=== PATIENT | female | born 1970 | race Caucasian/White ===

== ENCOUNTER 2024-03-09 19:47 | Emergency (ER) | payer BC, SELFPAY ==
[2024-03-09 20:03] VITALS: BP 160/110
--- NOTE | 2024-03-09 20:36 | ED.GENMED ---
History of Present Illness
General
Chief Complaint: Bowel Problem
Source: patient
Exam Limitations: none
Time Seen by Provider: 03/09/24 20:17
History of Present Illness
History of Present Illness:
53-year-old female with no clinically significant abnormality presents stating 2 nights ago she felt constipated, she cannot remember her last bowel movement. Her gave her a suppository and a fleets enema and she has had several soft good
bowel movements since. She has however had abdominal pain and feels bloated and has rectal pain. She is tearful.
She states at this time abdominal pain is not bad but she was doubled over in pain earlier. She feels pressure and pain in the rectal area 'like I have to push it out'
Denies fever or chills. Denies chest pain or trouble breathing. Denies UTI symptoms.
Past History
Past History
ED Past Medical History: None and Psychiatric (anxiety)
ED Past Surgical History: None
Social History
Tobacco: Former smoker
Alcohol: Daily
Personal:
Living: with family
Family History
Family History: Adopted
Review of Systems
Review of Systems
Allergies reviewed?: Yes
All Other Systems: ROS reviewed and negative except as documented in HPI and ROS
Constitutional: Denies fever
Respiratory: Denies trouble breathing
Cardiac: Denies chest pain
ABD/GI: Reports abdominal pain and constipated; Denies nausea, vomiting, diarrhea, bloody stools or black stools
: Denies dysuria, frequency, flank pain, difficulty voiding or urgency
Musculoskeletal: Reports no symptoms
Skin: Reports no symptoms
Neurological: Reports no symptoms
Phy Exam
Physical Exam
Physical Exam:
GENERAL: No acute distress. A&Ox3.
CONSTITUTIONAL: Afebrile.
EYES: clear, conjunctivae normal
ENMT: moist mucus membranes, Pharynx nl
RESPIRATORY: Regular respirations, nonlabored, lungs clear.
CARDIOVASCULAR: Regular rate and rhythm, no murmurs, no rubs.
GI: Soft, nontender, normal BS
Rectal: No significant tenderness, no palpable masses, no stool in rectal vault, no hemorrhoids
MUSCULOSKELETAL: Moves with ease. Well perfused.
SKIN: Warm, dry, pink
PSYCH: Anxious, intermittently tearful, seemingly out of proportion to her symptoms and exam, mood and affect. Well kept.
NEUROLOGIC: Awake, alert and oriented. No focal neurological deficits
Course
Orders/Labs/Results
Orders:
Orders
03/09/24 20:30
0.9% Sodium Chloride 1000 ml [Nss] 1,000 ml IV BOLUS
03/09/24 20:39
Complete Blood Count/With Diff Urgent
Comprehensive Metabolic Panel Urgent
Lipase Urgent
03/09/24 21:27
Urinalysis Reflex To Culture Urgent
Date Specimen was Collected: 03/09/24
Time Specimen was Collected: 20:55
Urine Microscopic Reflex Cult Urgent
Urine Culture Urgent
MARIAELENA Source: U
Specimen Description:
Date Specimen was Collected: 03/09/24
Time Specimen was Collected: 20:55
Abnormal Lab Results
03/09/24 03/09/24
20:39 21:27
MCH 32.5 H pg
(27.0-31.0)
Absolute Monos (auto) 0.7 H 10^3/uL
(0.1-0.6)
Glucose 100 H mg/dl
(70-99)
AST 116 H U/L
(14-36)
ALT 75 H U/L
(0-35)
Leukocyte Esterase Rfl 2+ A
(Negative)
Urine WBC (Reflex) 30-40 A /HPF
(0-5)
03/09/24 20:39
03/09/24 20:39
Vital Signs
Initial and Last Documented VS:
Initial Vital Signs
Temp Pulse Resp BP Pulse Ox
98.1 F 116 26 160/110 98
03/09/24 20:03 03/09/24 20:03 03/09/24 20:03 03/09/24 20:03 03/09/24 20:03
Last Documented Vital Signs
Temp Pulse Resp BP Pulse Ox
98.1 F 88 16 138/96 98
03/09/24 20:03 03/09/24 22:10 03/09/24 22:10 03/09/24 22:10 03/09/24 22:10
MDM/Problems Addressed
Differential Diagnosis Includes:
Constipation, proctalgia, bowel obstruction,
MDM/Problems Addressed:
53-year-old female with no clinically significant abnormality presents stating 2 nights ago she felt constipated, she cannot remember her last bowel movement. Her gave her a suppository and a fleets enema and she has had several soft good
bowel movements since. She has however had abdominal pain and feels bloated and has rectal pain. She is tearful.
She states at this time abdominal pain is not bad but she was doubled over in pain earlier. She feels pressure and pain in the rectal area 'like I have to push it out'
Denies fever or chills. Denies chest pain or trouble breathing. Denies UTI symptoms.
Afebrile. Anxious, tearful
9:30 p.m.
CBC normal
CMP unremarkable
Lipase normal
U/A few WBC's no UTI symptoms will await culture results. Pt informed of this.
10:00 P.m.
Pt remains tearful, tremulous, face flush, wants to leave, 'I just want to go home,' 'I want to call my (destinee), but he's out of town.'
Does not want to get CT scan.Daughter at bedside could not talk her into getting the scan
Her belly is soft, normal BS, non distended, no stool in rectal vault, no hemorrhoids, rectal exam not significantly painful, no palpable masses, in no distress
Pt is stable and can be discharged. Return instructions reviewed.
DC'd to care of daughter, ambulated out with normal gait.
*Critical Care Note
Total Time (30-74mins, 75-104mins- exclusive of procedures): Not Applicable
ED Attending Note
-
Portions of this chart may have been created with voice recognition software.� Occasional wrong word or��sound alike� substitutions may have occurred due to the inherent limitations of voice recognition software.
Discharge Plan
Departure
Patient Disposition: Home (Routine Discharge)
Date of Disposition: 03/09/24
Time of Disposition: 22:05
Patient with high blood pressure during this ER visit?: Yes
Condition: Fair
Discharge Problem:
Proctalgia, Abdominal pain
Instructions: Constipation, Adult (DC), Abdominal Pain
Referrals:
Rd Vasquez, DO [Family Provider] - As needed
Activity Restrictions/Additional Instructions:
As we discussed, your blood work is normal
Your urine has a few white blood cells that may indicate a UTI or urinary tract infection, when your final culture comes back in 2 to 3 days, if you need treatment with an antibiotic we will contact you.
See your doctor in 3 to 5 days if you are not improved by then.
Return here immediately for worsening abdominal pain, fever, vomiting or feeling sicker in any way.
Interventions
Interventions:
*Risk Screen - Suicide Last Done: 03/09/24 20:03
*General Assessment Last Done: 03/09/24 20:41
*Neglect/Abuse Screening Last Done: 03/09/24 20:03
*ED COVID-19 Vaccine History Last Done: 03/09/24 20:41
*Nursing Disposition Last Done: 03/09/24 22:15
QF-Eecikl-Jwoctupssy Assessment Last Done: 03/09/24 20:41
Discharge Date and Time
Discharge Date/Time: 03/09/24 22:16
Print Language: YORUBA
[2024-03-09] MEDS: NSS 1000 IV (20:39)
[2024-03-09 20:41] VITALS: BMI 29.5
[2024-03-09 20:46] LABS: % Eosinophils 0.4 % (0-6); % Immature Granulocytes 0.4 % (0-0.5); % Lymphocytes 33.8 % (20.5-51.1); % Monocytes 8.6 % (1.7-9.3); % Neutrophils 55.8 % (42.2-75.2); Absolute Basophils 0.1 10^3/uL (0-0.2); Absolute Lymphocytes 2.7 10^3/uL (1.2-3.4); Absolute Monocytes 0.7 10^3/uL (0.1-0.6); Absolute Neutrophils 4.5 10^3/uL (1.4-6.5); Hemoglobin 14.7 g/dL (12.0-16.0); Mean Corp Hgb Conc. 35.9 g/dL (33.0-37.0); Mean Corpuscular Hgb 32.5 pg (27.0-31.0); Mean Corpuscular Volume 90.7 fL (81.0-99.0); Mean Platelet Volume 9.5 fL (7.4-10.4); Nucleated Red Blood Cells % 0 %; Platelet Count 305 10^3/uL (130-400); Red Blood Cell Count 4.52 10^6/uL (4.20-5.40); White Blood Cell Count 8.1 10^3/uL (4.8-10.8)
[2024-03-09 21:02] LABS: ALT (SGPT) 75 U/L (0-35); AST (SGOT) 116 U/L (14-36); Albumin 4.7 g/dl (3.5-5.0); Alkaline Phosphatase 94 U/L (38-126); Blood Urea Nitrogen 7 mg/dl (7-17); Calcium 9.8 mg/dl (8.4-10.2); Carbon Dioxide 23 mmol/L (22-30); Chloride 103 mmol/L (98-107); Estimated Creatinine Clearance 99 ml/min; Glucose 100 mg/dl (70-99); Potassium 4.3 mmol/L (3.5-5.1); Sodium 145 mmol/L (135-145); Total Bilirubin 0.9 mg/dl (0.2-1.3); Total Protein 7.8 g/dl (6.3-8.2); eGFR > 60.00
[2024-03-09 21:21] LABS: Lipase 205 U/L (23-300)
[2024-03-09 21:33] LABS: Urine Albumin Negative (Neg - Trace); Urine Bilirubin Negative (Negative); Urine Character Clear (Clear); Urine Color Yellow; Urine Glucose Negative (Negative); Urine Ketone Negative (Negative); Urine Leukocyte 2+ (Negative); Urine Nitrite Negative (Negative); Urine Occult Blood Negative (Negative); Urine Urobilinogen Negative (Neg - 1+)
[2024-03-09 21:39] LABS: Urine Squamous Cell >30 /LPF (Few); Urine White Cell 30-40 /HPF (0-5)
[2024-03-09 21:40] LABS: Urine Red Blood Cell 0-2 /HPF (0-2)
[2024-03-09 22:10] VITALS: BP 138/96
== END 2024-03-09 22:16 | disposition home or self-care (01) ==
LOC: EMR 19:47
PROVIDERS: Registered Nurse; EMERGENCY PHYSICIAN Emergency Medicine; FAMILY PHYSICIAN Family Medicine
DX: K62.89 Other specified diseases of anus and rectum (principal); R10.9 Unspecified abdominal pain; Z87.891 Personal history of nicotine dependence
CPT/HCPCS: 96360; 99284; 80053; 81003; 81015; 83690; 85025; 87086

== ENCOUNTER 2024-03-11 18:23 | Observation (INO) | payer BC, SELFPAY ==
[2024-03-11] VITALS (7 sets, daily range): BP systolic 125–181; BP diastolic 89–121; BMI 28.8; BMI 27.7
--- NOTE | 2024-03-11 12:52 | ED.PDOC.TRB ---
ED Provider Triage
-
Patient seen by provider in Triage?: Seen in Triage
Attestation: A medical screening examination has been initiated by a qualified medical provider. Based on the assessment performed at this time, it has been determined that an emergent medical condition may exist and the patient has been informed
that further medical evaluation and possible additional diagnostic testing may be needed.
HPI: 53-year-old female returns the emergency department due to persistent abdominal bloating. Was seen here 2 days ago and at that time had refused CT scan. Feels constipated however having increased abdominal bloating and distention. Rectal
exam noted during last visit that there was no stool in the rectal vault. Has been using stool softeners and laxatives without improvement. Also notes nausea and vomiting. No prior abdominal surgeries
GENERAL: Alert , in no apparent distress
EYE: No visual abnormalities.
NECK: Trachea midline
ENT: No visible abnormalities.
LUNGS: No acute respiratory distress
NEUROLOGICAL: Alert and oriented
SKIN: Skin intact. No visible changes.
MUSCULOSKELETAL: Moving extremities normally
PSYCH: Normal and appropriate interaction.
Assessment: Appears visibly uncomfortable. She is now consenting to CT scan. Will place IV, give IV Toradol, check abdominal labs and obtain CT with IV contrast
This is a medical evaluation conducted in person to initiate diagnostic evaluation and provide initial therapeutics. Please see further documentation by the treating clinician.
[2024-03-11] MEDS: TORADOL 15 MG IV (12:58)
[2024-03-11 13:04] LABS: % Basophils 0.8 % (0-2); % Eosinophils 0.3 % (0-6); % Immature Granulocytes 0.4 % (0-0.5); % Lymphocytes 17.7 % (20.5-51.1); % Monocytes 8.2 % (1.7-9.3); % Neutrophils 72.6 % (42.2-75.2); Absolute Basophils 0.1 10^3/uL (0-0.2); Absolute Lymphocytes 1.4 10^3/uL (1.2-3.4); Absolute Monocytes 0.7 10^3/uL (0.1-0.6); Absolute Neutrophils 5.7 10^3/uL (1.4-6.5); Hematocrit 42.6 % (37.0-47.0); Hemoglobin 15.2 g/dL (12.0-16.0); Mean Corp Hgb Conc. 35.7 g/dL (33.0-37.0); Mean Corpuscular Volume 92.4 fL (81.0-99.0); Mean Platelet Volume 9.5 fL (7.4-10.4); Nucleated Red Blood Cells % 0 %; Platelet Count 280 10^3/uL (130-400); Red Blood Cell Count 4.61 10^6/uL (4.20-5.40); Red Cell Dist. Width 12.7 % (11.5-14.5); White Blood Cell Count 7.9 10^3/uL (4.8-10.8)
[2024-03-11 13:23] LABS: ALT (SGPT) 73 U/L (0-35); AST (SGOT) 133 U/L (14-36); Albumin 4.9 g/dl (3.5-5.0); Alkaline Phosphatase 106 U/L (38-126); Blood Urea Nitrogen 9 mg/dl (7-17); Calcium 10.1 mg/dl (8.4-10.2); Carbon Dioxide 24 mmol/L (22-30); Chloride 97 mmol/L (98-107); Glucose 128 mg/dl (70-99); Lipase 181 U/L (23-300); Potassium 4.6 mmol/L (3.5-5.1); Sodium 137 mmol/L (135-145); Total Bilirubin 2.4 mg/dl (0.2-1.3); eGFR > 60.00
--- NOTE | 2024-03-11 14:39 | ED.GENMED ---
History of Present Illness
<Lakia Menard PA-C - Last Filed: 03/11/24 17:43>
General
Chief Complaint: Abdominal Pain
Source: patient
Exam Limitations: none
Time Seen by Provider: 03/11/24 14:21
Nursing documentation reviewed up to this point in time: agreed with
History of Present Illness
History of Present Illness:
Patient is a 53-year-old female presenting to the emergency department for evaluation of intermittent upper abdominal pain and bloating over the past week. Symptoms initially started about a week ago with upper abdominal discomfort and
constipation. Patient was seen in the emergency department 2 days ago where she had normal lab work, urinalysis. Over the past few days�symptoms have persisted and have been associated with a few episodes of nausea, vomiting, and diarrhea.
Patient denies any fever or chills. No chest pain or shortness of breath. No urinary symptoms.
Patient denies any history of abdominal surgeries. Patient does drink 2 to 3 glasses of wine per day.
Past History
<Lakia Menard PA-C - Last Filed: 03/11/24 17:43>
Past History
ED Past Medical History: None and Psychiatric (anxiety)
ED Past Surgical History: None
Social History
Tobacco: Former smoker
Alcohol: Daily
Personal:
Living: with family
Family History
Family History: Adopted
Review of Systems
<Lakia Menard PA-C - Last Filed: 03/11/24 17:43>
Review of Systems
Allergies reviewed?: Yes
All Other Systems: ROS reviewed and negative except as documented in HPI and ROS
Phy Exam
<Lakia Menard PA-C - Last Filed: 03/11/24 17:43>
Physical Exam
Physical Exam:
Vitals: Tachycardic, hypertensive, otherwise vital signs stable. Afebrile
General: Patient is tearful, nontoxic appearing
Skin: Warm and dry, no rashes or lesions
Head: Normocephalic, atraumatic
Eyes: Sclera nonicteric. EOMs intact. No nystagmus.
Throat: Protecting airway
Neck: Normal ROM, no cervical spine tenderness, no meningismus
Cardiac: Regular rate and rhythm, no murmurs.
Pulm: Normal respiratory effort, no wheezes, rales, rhonchi heard on exam.
Abdomen: Abdomen soft. Moderate abdominal tenderness right upper quadrant. No rebound tenderness or guarding. No rashes or ecchymoses.
Extremities: No evidence of cyanosis or edema. Great distal pulses
Neuro: Grossly intact.
Psychiatric: Tearful.
Course
<Lakia Menard PA-C - Last Filed: 03/11/24 17:43>
Orders/Labs/Results
Orders:
Orders
03/11/24 12:51
CT Abd/Pel (IV only)-DH only Urgent
Comment:
Reason For Exam: abd distention
Ketorolac [Toradol] 15 mg IV NOW STA
03/11/24 12:58
Complete Blood Count/With Diff Urgent
Comprehensive Metabolic Panel Urgent
Direct Bilirubin Urgent
Comment: DIRECT BILIRUBIN ADDED ON BY FLOOR 2:30PM 03-11-24
Lipase Urgent
03/11/24 14:27
Add On- LAB Stat
Tests Added?: direct biliruubin
03/11/24 14:58
0.9% Sodium Chloride 1000 ml [Nss] 1,000 ml IV BOLUS
03/11/24 15:13
Morphine Sulfate 4 mg IV NOW STA
Ondansetron Injectable [Zofran] 4 mg IV NOW STA
US Abdomen Complete/Upper Urgent
Comment: elevated bilirubin
Reason For Exam: RUQ pain, bloating +N
Abnormal Lab Results
03/11/24
12:58
MCH 33.0 H pg
(27.0-31.0)
Absolute Monos (auto) 0.7 H 10^3/uL
(0.1-0.6)
Lymphocytes % 17.7 L %
(20.5-51.1)
Chloride 97 L mmol/L
(98-107)
Glucose 128 H mg/dl
(70-99)
Total Bilirubin 2.4 H D mg/dl
(0.2-1.3)
Direct Bilirubin 0.5 H mg/dl
(0.0-0.4)
AST 133 H U/L
(14-36)
ALT 73 H U/L
(0-35)
03/11/24 12:58
03/11/24 12:58
Vital Signs
Initial and Last Documented VS:
Initial Vital Signs
Temp Pulse Resp BP Pulse Ox
98.9 F 117 16 181/121 95
03/11/24 12:45 03/11/24 12:45 03/11/24 12:45 03/11/24 12:45 03/11/24 12:45
Last Documented Vital Signs
Temp Pulse Resp BP Pulse Ox
98.9 F 73 20 145/95 95
03/11/24 12:45 03/11/24 14:00 03/11/24 14:00 03/11/24 16:00 03/11/24 14:00
<Wade Gagnon MD - Last Filed: 03/11/24 15:04>
Orders/Labs/Results
Orders:
Orders
03/11/24 12:51
CT Abd/Pel (IV only)-DH only Urgent
Comment:
Reason For Exam: abd distention
Ketorolac [Toradol] 15 mg IV NOW STA
03/11/24 12:58
Complete Blood Count/With Diff Urgent
Comprehensive Metabolic Panel Urgent
Direct Bilirubin Urgent
Comment: DIRECT BILIRUBIN ADDED ON BY FLOOR 2:30PM 03-11-24
Lipase Urgent
03/11/24 14:27
Add On- LAB Stat
Tests Added?: direct biliruubin
03/11/24 14:58
0.9% Sodium Chloride 1000 ml [Nss] 1,000 ml IV BOLUS
03/11/24 15:13
Morphine Sulfate 4 mg IV NOW STA
Ondansetron Injectable [Zofran] 4 mg IV NOW STA
US Abdomen Complete/Upper Urgent
Comment: elevated bilirubin
Reason For Exam: RUQ pain, bloating +N
Abnormal Lab Results
03/11/24
12:58
MCH 33.0 H pg
(27.0-31.0)
Absolute Monos (auto) 0.7 H 10^3/uL
(0.1-0.6)
Lymphocytes % 17.7 L %
(20.5-51.1)
Chloride 97 L mmol/L
(98-107)
Glucose 128 H mg/dl
(70-99)
Total Bilirubin 2.4 H D mg/dl
(0.2-1.3)
Direct Bilirubin 0.5 H mg/dl
(0.0-0.4)
AST 133 H U/L
(14-36)
ALT 73 H U/L
(0-35)
03/11/24 12:58
03/11/24 12:58
Vital Signs
Initial and Last Documented VS:
Initial Vital Signs
Temp Pulse Resp BP Pulse Ox
98.9 F 117 16 181/121 95
03/11/24 12:45 03/11/24 12:45 03/11/24 12:45 03/11/24 12:45 03/11/24 12:45
Last Documented Vital Signs
Temp Pulse Resp BP Pulse Ox
98.9 F 73 20 145/95 95
03/11/24 12:45 03/11/24 14:00 03/11/24 14:00 03/11/24 16:00 03/11/24 14:00
<Lakia Menard PA-C - Last Filed: 03/11/24 17:43>
MDM/Problems Addressed
Differential Diagnosis Includes:
Not limited to: Gastritis, pancreatitis, biliary colic, cholecystitis, choledocholithiasis, etc.
MDM/Problems Addressed:
53-year-old female presenting with 1 week of intermittent upper abdominal pain associated with bloating and nausea. Few episodes of vomiting. No fevers or chills. Patient seen in the emergency department 2 days ago and discharged with normal
workup. Presents with persistent pain. Patient initially tachycardic and hypertensive on arrival to emergency department which has resolved by my assessment. Physical exam as above. Patient is mildly tearful, nontoxic-appearing. Abdomen is soft
with mild tenderness in right upper quadrant without rebound tenderness or guarding. Heart regular rate and rhythm. Lungs clear bilaterally. Labs were initiated in triage which are significant for an elevation in total bilirubin to 2.4. This is
an acute change from a total bili of 0.9 2 days ago. Transaminitis noted mildly elevated from prior lab draw. CT report reviewed�also initiated during triage which shows no acute abnormality in the abdomen. At this point�given patient's physical
exam along with elevated bilirubin�concern for obstructing stone versus other secondary process. Will check direct bilirubin. Will give patient IV fluids. Patient was given a dose of IV Toradol in triage and pain is currently well-controlled.
Will closely monitor and reassess.
Chronic conditions affecting care:
N/A
Acute Exacerbation and/or Progression of Chronic Illness:
N/A
<Lakia Menard PA-C - Last Filed: 03/11/24 17:43>
*Radiology
Radiology exam reviewed: radiology read reviewed
*Pulse Oximetry
Patient hypoxic: no
*EKG
Interpreted by ED Provider?: NA
*Ball Thread Machine Tender Interpretation
Rate: Ball Thread Machine Tender- N/A
*Critical Care Note
Total Time (30-74mins, 75-104mins- exclusive of procedures): Not Applicable
<Lakia Menard PA-C - Last Filed: 03/11/24 17:43>
Patient Management
Discussion with other providers: Hospitalist
Escalation/DeEscalation of care consider admission/obs:
Admit for further evaluation/MRCP and GI,
<Lakia Menard PA-C - Last Filed: 03/11/24 17:43>
Update Note
Update Note:
Update 3:13PM: Direct bilirubin very mildly elevated to 0.5. Will proceed with ultrasound of abdomen. Patient is in more discomfort. Will give dose of morphine. Anticipate admission for likely MRCP and GI consult.
Update 5:27 PM: Ultrasound report reviewed. No acute abnormalities noted. Given acute hyperbilirubinemia and intractable abdominal pain will admit for further evaluation/management. Patient will likely require MRCP and GI consult. Patient
admitted to hospitalist service in stable condition. Patient seen with attending physician.
ED Attending Note
<Lakia Menard PA-C - Last Filed: 03/11/24 17:43>
-
Portions of this chart may have been created with voice recognition software.� Occasional wrong word or��sound alike� substitutions may have occurred due to the inherent limitations of voice recognition software.
<Wade Gagnon MD - Last Filed: 03/11/24 15:04>
ED Attending Note
Patient seen and examined by attending physician: Yes
I performed the substantive portion of visit, reviewed & personally made and approve the management plan that is documented in note by myself or LILIANA.: Yes
ED Attending Note:
Patient is a 53-year-old woman presenting to the emergency department with abdominal pain. Patient states she was seen here few days ago she was having constipation. She then went home and a few days later started to have diarrhea. She now has
right upper and left upper quadrant tenderness. She been having vomiting. She has been taking less p.o. She denies any history of abdominal surgeries. Never happened to her before. No recent travel. No antibiotics. No fevers or chills. She
does drink about 3 to 4 glasses of wine a day. She last drink 2 days ago. Vitals are notable for hypertension.
GENERAL: in no acute distress
HEENT: normocephalic, extraocular movements intact, moist oral mucosa
NECK: normal inspection
RESPIRATORY: no respiratory distress, clear to auscultation bilaterally
CARDIOVASCULAR: regular rate and rhythm
ABDOMEN/: soft, non-distended, right upper quadrant tenderness, no rebound or guarding
EXTREMITIES: non-tender, no edema/swelling
NEUROLOGIC: awake and alert, moves all extremities
SKIN: warm
53-year-old woman presenting to the emergency department with abdominal pain nausea vomiting diarrhea. Vitals are exam does show right upper quadrant tenderness. Concern for cholecystitis versus CBD obstruction versus hepatitis or pancreatitis.
History and exam not consistent with ascending cholangitis at this time. Blood work obtained prior to evaluation does show transaminitis as well as elevated total bilirubin. Will add on direct bilirubin. CT scan obtained prior to evaluation is
unremarkable. Likely patient will need admission.
Discharge Plan
Departure
Patient Disposition: Admit
Date of Disposition: 03/11/24
Time of Disposition: 17:06
Presentation/result/management discussed w/ accepting MD/DO: Hospitalist
Discharge Problem:
Hyperbilirubinemia, Abdominal pain
Prescriptions:
No Action
naproxen sodium [Aleve] 220 mg Tablet
440 mg PO BIDPRN PRN (Reason: mild pain)
Referrals:
Rd Vasquez DO [Family Provider] -
Interventions
Interventions:
ED- Fall Risk Assessment Last Done: 03/11/24 15:47
UN-W[facility]exs-Zpvkqtaizl Assessment Last Done: 03/11/24 14:50
Discharge Date and Time
Print Language: CROATIAN
[2024-03-11 15:03] LABS: Direct Bilirubin 0.5 mg/dl (0.0-0.4)
[2024-03-11] MEDS: MORPHINE SULFATE 4 MG IV ×3 (15:41→22:46)
[2024-03-11] MEDS: NSS 1000 IV (15:41)
[2024-03-11] MEDS: ZOFRAN 4 MG IV ×2 (15:41→19:33)
--- NOTE | 2024-03-11 17:20 | HPS.HSE ---
Family Physician
-
Family Physician: Rd Vasquez
Chief Complaint
-
intermittent upper abdominal pain and bloating
History of Present Illness
53F No significant PMH seen at ER for evaluation of intermittent upper abdominal pain and bloating over the past week
- started about a week ago with upper abdominal discomfort and constipation.
- normal lab work, urinalysis 2 days ago at ER
- last few days symptoms have persisted and have been associated with a few episodes of nausea, vomiting, and diarrhea.
- reports Patient does drink 2 to 3 glasses of wine per day.
Medical History
Past Medical History
Past Medical History: Reports None
Past Surgical History: Reports None
Social History
Tobacco: Non-smoker
Alcohol: Daily (2 to 3 glasses of wine per day.)
Drug: None
Family History
Family History: Not pertinent
Allergies / Home Medications
Allergies reflects when Allergies were last updated in [facility].
Home Medications with original date entered in [facility]
Allergy/Medication List:
Allergies
Allergy/AdvReac Type Severity Reaction Status Date / Time
Penicillins Allergy Hives Verified 03/11/24 12:47
Home Medications
naproxen sodium 220 mg tablet (Aleve) 440 mg PO BID PRN PRN mild pain 03/11/24
Review of Systems
-
Constitutional: Reports No Symptoms
EENT: Reports No Symptoms
Respiratory: Reports No Symptoms
Cardiac: Reports No Symptoms
Abdomen/GI: Reports Abdominal Pain
: Reports No Symptoms
Musculoskeletal: Reports No Symptoms
Skin: Reports No Symptoms
Neurological: Reports No Symptoms
Endocrine: Reports No Symptoms
Hematologic/Lymphatic: Reports No Symptoms
Psych: Reports No Symptoms
Physical Exam
Vital Signs
Vital Signs
Temp Pulse Resp BP Pulse Ox
98.9 F 73 20 145/95 95
03/11/24 12:45 03/11/24 14:00 03/11/24 14:00 03/11/24 16:00 03/11/24 14:00
Physical Exam
General: Well Developed, Well Nourished and No Apparent Distress
HEENT: NormoCephalic, Moist mucous membranes and Atraumatic
Respiratory: Clear
Cardiac: S1/S2 and Regular Rhythm; No Murmur or Rub
GI: Soft, Non Tender, Non Distended and Normal Bowel Sounds; No Organomegaly
Rectal: Deferred by Provider
Musculoskeletal: No Clubbing, No Cyanosis and No Edema
Skin: No Rash
Neuro: Nonfocal/grossly intact
Laboratory Results
-
03/11/24 12:58
03/11/24 12:58
Laboratory Results
Total Bilirubin 2.4 mg/dl (0.2-1.3) H D 03/11/24 12:58
AST 133 U/L (14-36) H 03/11/24 12:58
ALT 73 U/L (0-35) H 03/11/24 12:58
Alkaline Phosphatase 106 U/L (38-126) 03/11/24 12:58
Lipase 181 U/L (23-300) 03/11/24 12:58
Data Reviewed
-
Diagnostic Radiology: Report Reviewed by me
CT Scan: Report Reviewed by me
Lab Data: Labs Reviewed by me
Impression/Plan
-
Vital Signs
Temp Pulse Resp BP Pulse Ox
98.9 F 73 20 145/95 95
03/11/24 12:45 03/11/24 14:00 03/11/24 14:00 03/11/24 16:00 03/11/24 14:00
Laboratory Tests
03/11/24
12:58
WBC 7.9
Hgb 15.2
Plt Count 280
Chloride 97 L
Glucose 128 H
Total Bilirubin 2.4 H D
Direct Bilirubin 0.5 H
AST 133 H
ALT 73 H
Alkaline Phosphatase 106
Lipase 181
03/01/17 EGD
- Normal esophagus. Biopsied.
- Gastritis. Biopsied.
- Normal examined duodenum. Biopsied.
US Abdomen Complete/Upper
- No evidence of cholelithiasis, gallbladder wall thickening or biliary tract dilatation.
- Findings compatible with diffuse hepatic steatosis
CT Abd/Pel (IV only)-DH only
1. No significant acute abnormality identified in the abdomen or pelvis, as described above.
2. Hepatic steatosis.
ASSESSMENT & PLAN
Intermittent upper abdominal pain and bloating
Associated new elvated TB with Transamnitis
diffuse hepatic steatosis
- No Sono evidence of cholelithiasis, gallbladder wall thickening or biliary tract dilatation.
- Unremarkable CT AP
- Viral Hep serology
- Supportive care
- GI consult to eval - MRCP ?
DVT Px: LMWH
Code: Full code
Obs MS
[2024-03-11] MEDS: LOVENOX 40 MG SC (19:33)
[2024-03-12] MEDS: MORPHINE SULFATE 4 MG IV (03:09)
--- NOTE | 2024-03-12 05:05 | DOWNTIME ---
There was a [employer] Client Replacer Downtime on 03/12/2024 from 0100 to 03/12/2024 at 0300. Downtime documentation of patient's care, including medication administrations, has been reconciled in the electronic record per guidelines. Refer to the
patient's paper chart under the miscellaneous tab to see printed paper medication records and downtime forms.
[2024-03-12 06:00] VITALS: BMI 27.5
[2024-03-12 07:51] VITALS: BP 141/94
[2024-03-12] MEDS: NSS (PRESERVATIVE FREE) 10 ML IV (07:51)
[2024-03-12] MEDS: PROTONIX IV 40 MG IV (07:51)
[2024-03-12 08:22] LABS: Hematocrit 36.2 % (37.0-47.0); Mean Corp Hgb Conc. 35.9 g/dL (33.0-37.0); Mean Corpuscular Volume 94.8 fL (81.0-99.0); Mean Platelet Volume 9.5 fL (7.4-10.4); Platelet Count 183 10^3/uL (130-400); Red Blood Cell Count 3.82 10^6/uL (4.20-5.40); Red Cell Dist. Width 12.6 % (11.5-14.5); White Blood Cell Count 5.1 10^3/uL (4.8-10.8)
[2024-03-12 08:24] LABS: ALT (SGPT) 80 U/L (0-35); AST (SGOT) 177 U/L (14-36); Albumin 4.2 g/dl (3.5-5.0); Alkaline Phosphatase 83 U/L (38-126); Blood Urea Nitrogen 6 mg/dl (7-17); Calcium 9.1 mg/dl (8.4-10.2); Carbon Dioxide 24 mmol/L (22-30); Chloride 98 mmol/L (98-107); Estimated Creatinine Clearance 89 ml/min; Glucose 106 mg/dl (70-99); Potassium 4.1 mmol/L (3.5-5.1); Sodium 134 mmol/L (135-145); Total Bilirubin 2.9 mg/dl (0.2-1.3); eGFR > 60.00
--- NOTE | 2024-03-12 10:48 | W.PN.HOSP.TC ---
Addendum entered and electronically signed by Emma Bautista MD 03/12/24 10:56:
Hyponatremia, mild, no confusion
Original Note:
Today's Communication/Plan
-
Discharge
Assessment / Plan
Assessment / Plan
Physical Exam
General: Well Developed, Well Nourished and No Apparent Distress
HEENT: Normocephalic, Moist mucous membranes and Atraumatic
Respiratory: Clear
Cardiac: S1/S2 and Regular Rhythm; No Murmur or Rub
GI: Soft, Non Tender, Non Distended and Normal Bowel Sounds.
Rectal: No bleeding
Musculoskeletal: No Clubbing, No Cyanosis and No Edema
Skin: No Rash
Neuro: Nonfocal/grossly intact. No tremor.
Psych: calm, pleasant.
#Intermittent upper abdominal pain and bloating
She feels better, no abd pain, no nausea
No fever or leukocytosis.
Trial of diet, she tolerated diet well
She was advised to avoid ETOH. She reports daily drinking but only a glass or so at night. She does not know her family history ( adopted).
She will f/w GI in [place] on course of PPI, PRN Zofran.
US Abdomen Complete/Upper
- No evidence of cholelithiasis, gallbladder wall thickening or biliary tract dilatation.
- Findings compatible with diffuse hepatic steatosis
CT Abd/Pel (IV only)-DH only
1. No significant acute abnormality identified in the abdomen or pelvis, as described above.
2. Hepatic steatosis.
Total discharge time spent to see the patient, examine the patient on the floor, review data and lab results, discuss discharge plan with patient, nursing staff around 65 minutes
Anticipated Discharge: Today
Subjective/Interval History
-
Date of Service: March 12, 2024
She feels better
No abd pain
No sob
No chest pain
No nausea
Objective Data
-
Labs:
Laboratory Results
03/12/24 03/12/24
07:28 07:29
WBC 5.1
Hgb 13.0
Hct 36.2 L
Plt Count 183 D
Sodium 134 L
Potassium 4.1
Chloride 98
Carbon Dioxide 24
BUN 6 L
Creatinine 0.7
Glucose 106 H
Calcium 9.1
Total Bilirubin 2.9 H
AST 177 H
ALT 80 H
Alkaline Phosphatase 83
Vital Signs:
Vital Signs
Temp Pulse Resp BP Pulse Ox
98.9 F 84 17 141/94 93
03/12/24 07:51 03/12/24 07:51 03/12/24 07:51 03/12/24 07:51 03/12/24 07:51
I&O
03/11/24 03/12/24 03/13/24
06:59 06:59 06:59
Intake Total 720 / 720
Balance 720 / 720
[2024-03-12 11:33] VITALS: BP 131/94
--- NOTE | 2024-03-12 11:42 | CM ---
Alert awake oriented patient who lives with her Shaun in a 1 story home with 2 steps to enter and bed/bathroom on first floor. She is independent in driving and activates of daily living..No adaptive devices.
No in past . No SNF hx
Pharmacy [facility]
PCP Dr Vasquez
PLAN Home No needs
--- NOTE | 2024-03-12 12:09 | W.DCSUMMARY ---
Discharge Summary
Discharge Data
Date of Admission: 03/11/24
Date of Discharge: 03/12/24
-
Pending Results: No
Hospital Course
53 years old female admitted for evaluation of intermittent upper abdominal pain and bloating for few days duration. No leukocytosis. No fever. No nausea or vomiting. She did not have signs of urinary tract infection. She did report few
episodes of nausea and vomiting at home. She reported history of diarrhea and constipation. Scan of the abdomen and pelvis with intravenous contrast did not show acute findings but showed hepatic steatosis. Abdominal ultrasound showed no evidence
of cholelithiasis, gallbladder pathology but was compatible with diffuse hepatic steatosis. Patient admitted to drinking alcohol at night. She did not have alcohol withdrawal signs. She was noted to have elevated liver enzymes. Patient started
to feel better with supportive care. She was given Protonix and pain medicine. Patient felt well to go home and she was advised to avoid alcohol intake and nonsteroidal anti-inflammatory drugs. She was given a prescription of Protonix with
Zofran. She was advised to make appointment with gastroenterology doctor. Patient verbalized understanding to the discharge instructions. She was discharged home in a stable condition after tolerating diet.
Discharge Plan
-
Patient Disposition: Home (Routine Discharge)
Discharge Diagnosis/Procedures: Abdominal pain with elevated liver enzymes. Imaging studies showed hepatic steatosis.
Avoid NSAIDS as Naproxen ( causes gastric irritation)
Continue low fat diet, avoid alcohol, use Protonix and Zofran, make an appointment with GI doctor. Follow with your family doctor, screen for diabetes (check HGB A1C) .
Diet: Low Fat
Referrals:
Rd Vasquez DO [Family Provider] - in one to two weeks
Laura Clayton DO [Active] - in two to three weeks
Prescriptions:
New
pantoprazole [Protonix] 40 mg tablet,delayed release (DR/EC)
40 mg PO DAILY Qty: 30 0RF
ondansetron HCl 4 mg tablet
4 mg PO Q8H PRN (Reason: nausea and vomiting) Qty: 20 0RF
Discontinued
naproxen sodium [Aleve] 220 mg Tablet
440 mg PO BIDPRN PRN (Reason: mild pain)
Discharge Orders:
Discharge Patient (As Directed); Ordered 03/12/24
Ordered By: Emma Bautista
Discharge Date and Time
Discharge Date/Time: 03/12/24 11:34
Print Language: TAIWANESE
[2024-03-13 14:01] LABS: Hepatitis B Surface Antigen Negative (Negative)
[2024-03-13 14:20] LABS: Hepatitis B Core Ab, Total Negative (Negative); Hepatitis B Surface Antibody Negative; Hepatitis C Antibody Negative (Negative)
[2024-03-13 14:27] LABS: Hepatitis A Antibody, Total Negative (Negative)
== END 2024-03-12 11:34 | disposition home or self-care (01) ==
LOC: 3 WEST ACU 18:23
PROVIDERS: Physician Assistant; ADMITTING PHYSICIAN Internal Medicine; ATTENDING PHYSICIAN Internal Medicine; EMERGENCY PHYSICIAN Student in an Organized Health Care Education/Training Program; FAMILY PHYSICIAN Family Medicine
DX: R10.11 Right upper quadrant pain (principal); K59.00 Constipation, unspecified; R14.0 Abdominal distension (gaseous); R11.2 Nausea with vomiting, unspecified; R10.9 Unspecified abdominal pain; K76.0 Fatty (change of) liver, not elsewhere classified; E87.1 Hypo-osmolality and hyponatremia; R74.8 Abnormal levels of other serum enzymes; R19.7 Diarrhea, unspecified; F10.90 Alcohol use, unspecified, uncomplicated; F41.9 Anxiety disorder, unspecified; R00.0 Tachycardia, unspecified; I10 Essential (primary) hypertension; Z88.0 Allergy status to penicillin; Z87.891 Personal history of nicotine dependence
CPT/HCPCS: 74177; 76700; 80053; 82248; 83690; 85025; 85027; 86704; 86705; 86706; 86708; 86709; 86803; 87340; 96361; 96374; 96375; 99285; G0378; Q9967

== ENCOUNTER → 2024-03-20 15:46 | Outpatient (REF) | payer BC, SELFPAY | LOC: HWWDC 15:46 | PROVIDERS: ATTENDING PHYSICIAN Obstetrics & Gynecology Gynecology; FAMILY PHYSICIAN Family Medicine | DX: Z12.31 Encounter for screening mammogram for malignant neoplasm of breast (principal) | CPT/HCPCS: 77063; 77067 ==

== ENCOUNTER → 2025-06-11 17:44 | Outpatient (REF) | payer BC, SELFPAY | LOC: WDC 17:44 | PROVIDERS: ATTENDING PHYSICIAN Obstetrics & Gynecology Gynecology | DX: Z12.31 Encounter for screening mammogram for malignant neoplasm of breast (principal); Z12.39 Encounter for other screening for malignant neoplasm of breast | CPT/HCPCS: 77063; 77067 ==